=== PATIENT | male | born 1990 | race Caucasian/White ===

== ENCOUNTER 2022-06-02 12:29 | Outpatient (CLI) | payer OTHER, SELFPAY ==
--- NOTE | 2022-06-02 13:36 | W.ANESCHARGE ---
Anesthesia Charges Start Date/Time Anesthesia Start Date: 06/02/22 Anesthesia Start Time: 13:00 Stop Date/Time Anesthesia Stop Date: 06/02/22 Anesthesia Stop Time: 13:30
== END 2022-06-02 12:30 | disposition home or self-care (01) ==
LOC: OP CLINIC 12:30
PROVIDERS: PCP Physician Assistant Medical; Visit Provider Internal Medicine
DX: Z12.11 Encounter for screening for malignant neoplasm of colon (principal); K63.5 Polyp of colon; Z86.010 Personal history of colon polyps
CPT/HCPCS: 00811; 45380

== ENCOUNTER 2022-10-06 12:51 | Outpatient (CLI) | payer OTHER, SELFPAY ==
--- NOTE | 2022-10-06 13:00 | MR_ITS ---
[facility] [address] [facility] [address] Phone:?[phone] Fax:?[phone] Referring Physician Information: Ton Luque PA-C [id number] [facility] [address] Phone:?[phone] Fax:?[phone] Patient:?Shimon Rae D.O.B:?1990 Sex:?Male Phone:?[phone] [facility] MRN:?[id number] Exam Date:?10/06/2022 EXAM:?MR LUMBAR SPINE WITHOUT CONTRAST CLINICAL INFORMATION: 32-year-old male with back pain evaluate for disc degeneration/herniation. COMPARISON: 07/23/2015.?SEDATION:?None. TECHNICAL INFORMATION: Imaging was performed at [facility]. Sagittal and axial T1 / FSE T2, and sagittal STIR images were obtained through the lumbar spine. INTERPRETATION: L5-S1:?Severe disc degeneration with active Modic 1 marrow reaction. Osteophyte and bulge/protrusion abut dural sac without central stenosis or neural impingement. Mild foraminal narrowing with left ganglion contact. Conjoined right S1-S2 root sleeve. L4-5: Normal disc height and no central or foraminal stenosis. Unremarkable facet joints. [id number]: No bulge, degeneration, herniation or neural impingement. Unremarkable facet joints. Osseous Structures: Fat suppressed images are negative for acute or subacute fractures. Paraspinous Soft Tissues: No mass lesions. Conus, Cord and Cauda Equina: Normal position conus and no evidence of intradural mass or arachnoiditis. CONCLUSION: 1. Severe L5-S1 disc degeneration with active Modic 1 marrow reaction and bulge/protrusion abut dural sac without impingement. 2. Mild bilateral L5-S1 foraminal narrowing with left L5 ganglion contact. 3. Comparison to 07/23/2015 shows significant progression of L5-S1 disc degeneration and development of new active Modic 1 marrow reaction. Correlate for discogenic mediated back pain. Electronically signed on 10/06/2022 6:35:00 PM by Ananth Donovan M.D.
== END 2022-10-06 12:52 | disposition home or self-care (01) ==
LOC: MRI 12:52
PROVIDERS: PCP Physician Assistant Medical; Visit Provider Physician Assistant Medical
DX: M54.9 Dorsalgia, unspecified (principal); M51.36 Other intervertebral disc degeneration, lumbar region; M51.37 Other intervertebral disc degeneration, lumbosacral region; M51.27 Other intervertebral disc displacement, lumbosacral region
CPT/HCPCS: 72148

== ENCOUNTER 2022-12-19 09:58 | Outpatient (CLI) | payer OTHER, SELFPAY | END 2022-12-19 09:59 | disposition home or self-care (01) | PROVIDERS: PCP Physician Assistant Medical; Visit Provider Family Medicine | DX: M54.16 Radiculopathy, lumbar region (principal); M51.36 Other intervertebral disc degeneration, lumbar region | CPT/HCPCS: 62323; J0702; Q9966 ==

== ENCOUNTER 2024-03-26 15:49 | Outpatient (CLI) | payer OTHER, SELFPAY | END 2024-03-26 15:50 | disposition home or self-care (01) | LOC: NFLDREF 04-02 00:57 | PROVIDERS: PCP Physician Assistant Medical; Referring Provider Physician Assistant Medical; Visit Provider Physician Assistant Medical | DX: I10 Essential (primary) hypertension (principal); R79.89 Other specified abnormal findings of blood chemistry; E78.1 Pure hyperglyceridemia; F98.8 Other specified behavioral and emotional disorders with onset usually occurring in childhood and adolescence | CPT/HCPCS: 80053; 80061; 84443 ==

== ENCOUNTER 2024-04-03 10:28 | Outpatient (CLI) | payer OTHER, SELFPAY | END 2024-04-03 10:29 | disposition home or self-care (01) | LOC: NFLDREF 04-05 03:09 | PROVIDERS: PCP Physician Assistant Medical; Referring Provider Physician Assistant Medical; Visit Provider Physician Assistant Medical | DX: R79.89 Other specified abnormal findings of blood chemistry (principal) | CPT/HCPCS: 86705; 86706; 86708; 86803; 87340 ==

== ENCOUNTER 2024-04-07 08:08 | Outpatient (CLI) | payer OTHER, SELFPAY ==
--- NOTE | 2024-04-07 08:15 | CRLHL7_ITS ---
For Patients: As a result of the Century Cures Act, medical imaging exams and procedure reports are released immediately into your electronic medical record. You may view this report before your referring provider. If you have questions, please contact your health care provider. INDICATION: Right upper quadrant abdomen pain. TECHNIQUE: Ultrasound abdomen limited. Sonographic images of the right upper quadrant were obtained using tong-scale and color Doppler images. COMPARISON: None. FINDINGS: Liver: Liver is enlarged measuring 18.5 cm. Diffuse increase in liver echogenicity. No concerning intrahepatic mass biliary duct dilatation. Hepatopetal flow of main portal vein with maintained respiratory phasic variation. Main portal vein measures 1.2 cm. Gallbladder: No stones or sludge. Normal wall thickness. No pericholecystic fluid. Common bile duct: 5 millimeter. Negative Smallwood`s sign at the time of ultrasound examination. Pancreas: Pancreas is partially imaged secondary to bowel gas. Included pancreatic head and body is within normal limits without duct dilatation. Vasculature: Patent IVC. Included abdominal aorta is of normal caliber. Right kidney measures 10 centimeter. No hydronephrosis. Preserved vascularity. Renal cortical thickness measures 2.1 cm. IMPRESSION: Hepatomegaly with diffuse hepatic steatosis. No cholelithiasis or acute cholecystitis. Dictated by Lei Luque MD @ 04/07/2024 11:43:02 AM (Electronically Signed)
== END 2024-04-07 08:09 | disposition home or self-care (01) ==
LOC: US 08:10
PROVIDERS: PCP Physician Assistant Medical; Visit Provider Physician Assistant Medical
DX: R10.11 Right upper quadrant pain (principal); R16.0 Hepatomegaly, not elsewhere classified; K76.0 Fatty (change of) liver, not elsewhere classified; R79.89 Other specified abnormal findings of blood chemistry
CPT/HCPCS: 76705

== ENCOUNTER 2024-07-04 10:20 | Outpatient (CLI) | payer OTHER, SELFPAY | END 2024-07-04 10:21 | disposition home or self-care (01) | LOC: NFLDREF 07-11 00:40 | PROVIDERS: PCP Physician Assistant Medical; Referring Provider Physician Assistant Medical; Visit Provider Physician Assistant Medical | DX: K76.0 Fatty (change of) liver, not elsewhere classified (principal); E78.1 Pure hyperglyceridemia; R79.89 Other specified abnormal findings of blood chemistry; I10 Essential (primary) hypertension | CPT/HCPCS: 80061; 84450; 84460 ==